=== PATIENT | male | born 1985 | race African-American/Black ===

== ENCOUNTER 2019-05-17 20:47 | Emergency (ER) | payer BC ==
[2019-05-17] MEDS ORDERED: Ondansetron 4 MG/2 ML SDV IVPUSH ONE (21:40)
[2019-05-17] MEDS ORDERED: Ketorolac 30 MG/ML SDV IVPUSH ONE (21:40)
[2019-05-17] MEDS ORDERED: Sodium Chloride 0.9% 1,000 ML IV SCH (21:45)
--- NOTE | 2019-05-17 23:16 | EDM.PDOC ---
ED HPI GENERAL MEDICAL PROBLEM - General Chief Complaint: Headache Stated Complaint: HEADACHE Time Seen by Provider: 05/17/19 21:23 Source of Information: Reports: Patient History Limitations: Reports: No Limitations - History of Present Illness INITIAL COMMENTS - FREE TEXT/NARRATIVE: Patient is a 34-year-old male who presents with complaints of headache that started this afternoon. He states he has had no nausea associated this, however he did vomited earlier in the afternoon. He has a history of similar headaches and states this feels very much like his headaches in the past. He took ibuprofen around 330 this afternoon. He has taken no further pain medication since that time. Denies any associated vision changes, nausea, vomiting, and or diarrhea. He does not have photosensitivity. Patient has no chronic health problems and does not take any daily medications. Headache Pain Score (Numeric/FACES): 7 - Related Data Allergies Allergy/AdvReac Type Severity Reaction Status Date / Time No Known Allergies Allergy Verified 05/17/19 20:55 Home Meds: Home Meds . [No Known Home Meds] 05/17/19 [History] Past Medical History - Past Health History Medical/Surgical History: Denies Medical/Surgical History Social & Family History - Tobacco Use Smoking Status *Q: Never Smoker Second Hand Smoke Exposure: No - Recreational Drug Use Recreational Drug Use: No ED ROS GENERAL - Review of Systems Review Of Systems: Comprehensive ROS is negative, except as noted in HPI. - Physical Exam Exam: See Below Exam Limited By: No Limitations General Appearance: Alert, WD/WN, No Apparent Distress Respiratory/Chest: No Respiratory Distress, Lungs Clear, Normal Breath Sounds, No Accessory Muscle Use, Chest Non-Tender Cardiovascular: Normal Peripheral Pulses, Regular Rate, Rhythm, No Edema, No Gallop, No JVD, No Murmur, No Rub Neuro Exam (Abbreviated): Alert, Oriented, CN II-XII Intact, Normal Cognition, Normal Gait, Normal Reflexes, No Motor/Sensory Deficits Psychiatric: Normal Affect, Normal Mood Skin Exam: Warm, Dry, Intact, Normal Color, No Rash Course - Vital Signs Last Recorded V/S: Last Vital Signs Temp 97.9 F 05/17/19 20:53 Pulse 86 05/17/19 20:53 Resp 16 05/17/19 20:53 BP 131/98 H 05/17/19 20:53 Pulse Ox 100 05/17/19 20:53 - Orders/Labs/Meds Orders: Active Orders 24 hr Category Date Time Status Sodium Chloride 0.9% [Normal Saline] 1,000 ml Med 05/17/19 21:45 Active IV ASDIRECTED Medication Orders Sodium Chloride (Normal Saline) 1,000 mls @ 999 mls/hr IV ASDIRECTED MARQUISE Last Admin: 05/17/19 22:00 Dose: 999 mls/hr Meds: Medications Generic Name Dose Route Start Last Admin Trade Name Freq PRN Reason Stop Dose Admin Sodium Chloride 1,000 mls @ 999 mls/hr 05/17/19 21:45 05/17/19 22:00 Normal Saline IV 999 mls/hr ASDIRECTED MARQUISE Administration Discontinued Medications Generic Name Dose Route Start Last Admin Trade Name Freq PRN Reason Stop Dose Admin Ketorolac Tromethamine 30 mg 05/17/19 21:40 05/17/19 22:00 Toradol IVPUSH 05/17/19 21:41 30 mg ONETIME ONE Administration Ondansetron HCl 4 mg 05/17/19 21:40 05/17/19 21:57 Zofran IVPUSH 05/17/19 21:41 4 mg ONETIME ONE Administration - Re-Assessments/Exams Free Text/Narrative Re-Assessment/Exam: 05/17/19 23:16 Patient verbalized relief from his headache after the medications given. We will discharge him home with general recommendations. Discharge instructions as noted. Departure - Departure Time of Disposition: 23:14 Disposition: Home, Self-Care 01 Condition: Fair Clinical Impression: Headache Qualifiers: Headache type: unspecified Headache chronicity pattern: acute headache Intractability: not intractable Qualified Code(s): R51 - Headache - Discharge Information *PRESCRIPTION DRUG MONITORING PROGRAM REVIEWED*: No *COPY OF PRESCRIPTION DRUG MONITORING REPORT IN PATIENT JESSICA: No Instructions: General Headache Without Cause Referrals: PCP,None [Primary Care Provider] - Forms: ED Department Discharge, ED Return to Work/School Form Additional Instructions: You were seen in the emergency department today for headache since this afternoon. While in the ER you received a liter of IV fluids, Toradol, and Zofran. He did verbalize that these relieved your symptoms. Recommend that you go home and rest in a quiet dark room. You may continue to take Tylenol or ibuprofen as needed for any discomfort. If you should experience any new or worsening symptoms of concern, please do not hesitate to return to the emergency department. Sepsis Event Note - Evaluation Sepsis Screening Result: No Definite Risk - Focused Exam Vital Signs: Vital Signs Temp Pulse Resp BP Pulse Ox 05/17/19 20:53 97.9 F 86 16 131/98 H 100 Date Exam was Performed: 05/17/19 Time Exam was Performed: 23:55 - My Orders Last 24 Hours: My Active Orders 05/17/19 21:45 Sodium Chloride 0.9% [Normal Saline] 1,000 ml IV ASDIRECTED - Assessment/Plan Last 24 Hours: My Active Orders 05/17/19 21:45 Sodium Chloride 0.9% [Normal Saline] 1,000 ml IV ASDIRECTED
== END 2019-05-17 23:55 | disposition home or self-care (01) ==
LOC: JD.ED 20:47
DX: R51 Headache (principal); R11.10 Vomiting, unspecified
CPT/HCPCS: 96361; 96374; 96375; 99283; J1885; J2405; J7030